=== PATIENT | female | born 1985 | race Caucasian/White ===

== ENCOUNTER → 2018-01-13 13:57 | Outpatient (CLI) | payer OTHER, SELFPAY ==
[2018-01-13 15:37] LABS: Absolute Neutrophil Count 5.2 X10^3/uL (2.0-7.7); Basophil# 0.03 X10^3/uL; Basophil% 0.4 % (0-1); Eosinophils% 2.6 % (0-5); Hematocrit 40.4 % (37-47); Hemoglobin 13.9 g/dl (12.0-15.0); Lymphocyte % 23.8 % (19-41); Mean Corp Hgb Conc 34.4 g/gl (32-36); Mean Corpuscular Hgb 28.2 pg (27.0-32.0); Mean Corpuscular Volume 81.9 fL (81-99); Mean Platelet Vol. 10.3 fl (6.2-12.0); Monocyte# 0.35 X10^3/uL; Monocyte% 4.6 % (0-10); Neutrophil # 5.17 X10^3/uL (2.7-7.7); Neutrophil % 68.5 % (47-70); Platelet Count 347 K/mm3 (150-450); RBC Distribution Width CV 13.1 % (11.6-14.6); RBC Distribution Width SD 38.4 fl (35.1-43.9); Red Blood Count 4.93 M/mm3 (4.2-5.4); White Blood Count 7.6 K/mm3 (4.4-11.0)
[2018-01-13 15:51] LABS: POSITIVE COUNT NO; POSITIVE DIFFERENTIAL NO; POSITIVE MORPHOLOGY NO
[2018-01-13 16:02] LABS: CRP < 2.90 mg/L (0.0-3.0); Rheumatoid Factor < 10.0 IU/mL (<15)
[2018-01-13 16:06] LABS: Erythrocyte Sedimentation Rate < 1 mm/hr (0-20)
[2018-01-17 11:07] LABS: ANTINUCLEAR ANTIBODIES DIRECT Negative (Negative)
== END ==
LOC: BFHLAB 14:01
PROVIDERS: Family Provider Family Medicine; PCP Family Medicine; Visit Provider Family Medicine
DX: M65.9 Synovitis and tenosynovitis, unspecified (principal)
CPT/HCPCS: 36415; 85025; 85652; 86038; 86140; 86225; 86235; 86431